=== PATIENT | female | born 1930 | race Caucasian/White ===

== ENCOUNTER 2017-08-20 03:47 | Observation (INO) ==
[2017-08-20] MEDS ORDERED: *HR* Morphine 2 MG/ML SYRINGE IVP PRN (07:54)
[2017-08-20] MEDS ORDERED: Acetaminophen 325 MG TABLET PO PRN (07:54)
[2017-08-20] MEDS ORDERED: Naloxone 0.4 MG/ML INJ IVP PRN (07:54)
[2017-08-20] MEDS ORDERED: 0.9 % Sodium Chloride 500 ML IVC ONE (08:00)
--- NOTE | 2017-08-20 08:01 | Internal Med History&Physical ---
Date of Encounter: 08/20/17 Time of Encounter: 08:48 Assessment and Plan (1) TIA (transient ischemic attack) Current visit: Yes Status: Suspected suspected, due to patient's son expressing concerns for expressing aphasia, patient denies No neurologic deficits at this time Ambulatory Head CT unremarkable EKG is Sinus tachycardia with few PVCs Start on ASA and Lipitor Check Lipid panel Obtain ECHO and Brain MRI Qualifiers: Transient cerebral ischemia type: unspecified Qualified Code(s): G45.9 - Transient cerebral ischemic attack, unspecified (2) Urinary tract infection Current visit: Yes Status: Acute UA noted, sent for culture Continue ceftriaxone,may deescalate when cultures result Qualifiers: Urinary tract infection type: acute cystitis Hematuria presence: without hematuria Qualified Code(s): N30.00 - Acute cystitis without hematuria (3) Hypertension Current visit: Yes Status: Chronic Uncontrolled Start on Norvasc, resume home dose of lisinopril Monitor closely Qualifiers: Hypertension type: essential hypertension Qualified Code(s): I10 - Essential (primary) hypertension (4) Headache Current visit: Yes Status: Acute Tylenol prn Possibly due to uncontrolled blood pressure Follow brain MRI Qualifiers: Headache type: tension-type Headache chronicity pattern: acute headache Intractability: not intractable Qualified Code(s): G44.209 - Tension-type headache, unspecified, not intractable Internal Medicine - H&P: HPI Chief complaint: Headaches Admitted From: Hospital to Hospital Transfer Plans for Post Hospital Care: Home History of present illness: Ms. Chacko is a 87 year old female with PMH of HTN, who is transferred from [place] for TIA work up Patient states she only has complains of headaches that has been ongoing for about 36 hrs, started Monday night. She reports headaches is left sided and non- radiating, throbbing in nature, she has never had similar symptoms, she has no photophobia, phonophobia, nausea or vomiting no abdominal symptoms, she has no flashes of light. She denies slurred speech, she denies weakness or sensory deficits. She also denies any chest, cardiac or urologic symptoms ER note from [place] stated patient's son expressed concerns of word-finding difficulty, and possible expressive aphasia. The patient denies this Work up done from [place] reviewed, CBC WNL, chem unremarkable, UA is positive for nitrites No illicit drug use. Patient has never smoked, no prior neurologic problems. She has a PMH of HTN Blood pressure on arrival and till now uncontrolled She has no neurologic deficits at time of review Past Med Surg Social Fam HX - Past Medical History Medical history: hypertension, other Psychiatric history: no psych history - Social History Smoking Status: Never smoker Smokeless Tobacco Status: No Alcohol use: none Drug use: none Internal Medicine - H&P: Meds Lisinopril [Zestril] 10 mg PO DAILY 08/19/17 [History] Meclizine [Antivert] 50 mg PO DAILY 08/19/17 [History] 3 Allergy/AdvReac Type Severity Reaction Status Date / Time No Known Allergies Allergy Verified 08/19/17 23:35 All Systems PM: A 10-system review of systems was performed and is negative for pertinent findings except as documented above in the HPI. - Constitutional Constitutional: no chills, no fever(s), no night sweats - EENT Eyes: no change in vision, no discharge, no pain, no photophobia Ears: no ear discharge, no ear pain, no tinnitus Nose, mouth and throat: no dysphagia, no nasal discharge, no neck pain, no sore throat - Cardiovascular Cardiovascular ROS IM: no chest pain, no diaphoresis, no dyspnea, no lightheadedness, no palpitations, no syncope - Respiratory Respiratory: no cough, no dyspnea, no wheezing, no excessive phlegm production - Gastrointestinal Gastrointestinal: no abdominal pain, no diarrhea, no hematemesis, no hematochezia, no melena, no nausea, no vomiting - Genitourinary Genitourinary: no change in urinary stream, no dysuria, no flank pain, no hematuria - Musculoskeletal Musculoskeletal ROS IM: no numbness, no tingling - Integumentary Integumentary IM: no rash, no unusual bruising - Neurological Neurological ROS: headache(s) - Hematologic/Lymphatic Hematologic/Lymphatic: no easy bruising - Constitutional Vitals: Temp Pulse Resp BP Pulse Ox 98.8 F 104 20 161/97 97 08/20/17 07:13 08/20/17 07:13 08/20/17 07:13 08/20/17 07:13 08/20/17 07:13 General appearance: Present: A&O X 3, pleasant, no acute distress - Head Head exam: Present: atraumatic, normocephalic - Eye Eye exam: Present: PERRL, conjuntiva pink, sclera anicteric Pupils: Present: PERRL - Neck Neck exam general surgery: Present: supple, trachea midline. Absent: lymphadenopathy - Respiratory Respiratory exam: Present: CTAB. Absent: accessory muscle use, rales, rhonchi, wheezes - Cardiovascular Cardiovascular exam: Present: RRR, +S1, +S2. Absent: diastolic murmur, gallop, rubs, systolic murmur - GI/Abdominal GI/Abdominal exam: Present: normal bowel sounds, soft, no peritoneal signs. Absent: distended, tenderness - Extremities Exam Extremities exam: Present: warm, radial pulses palpable and symmetrical. Absent : calf tenderness, cyanotic, pedal edema - Neurological Exam Neurological exam: Present: alert, CN II-XII intact, oriented X3, no focal deficits. Absent: pronater drift, facial droop, speech deficit - Skin Skin exam: Present: dry, intact
[2017-08-20] MEDS: Aspirin 81 MG TAB.CHEW PO SCH (09:15)
[2017-08-20] MEDS: amLODIPine 5 MG TABLET PO SCH (09:15)
[2017-08-20] MEDS: *HR* Heparin 5,000 UNIT/ML VIAL SQ SCH ×3 (09:15→20:16)
[2017-08-20] MEDS: cefTRIAXone 1,000 MG in Water for inj. (sterile) 10 ML IVPB SCH (09:16)
[2017-08-20] MEDS: *HR* HYDROcodone/Acet 5/325 mg TABLET PO PRN (20:15)
[2017-08-21 03:54] LABS: Basophils % 0.5 %; Eosinophils # 0.1 K/mcL (0.0-0.6); Eosinophils % 2.3 %; Hematocrit 39.9 % (35.3-44.9); Hemoglobin 12.7 g/dL (11.5-15.4); Immature Granulocytes % 0.2 % (0-4); Lymphocytes # 2.1 K/mcL (0.6-4.6); Lymphocytes % 38.4 %; Mean Corpuscular HGB Conc 31.8 g/dL (31.6-35.5); Mean Corpuscular Hemoglobin 28.7 pg (28.0-33.3); Mean Corpuscular Volume 90.3 fL (83.0-100.0); Mean Platelet Volume 12.2 fL (9.4-12.4); Monocytes # 0.4 K/mcL (0.0-1.3); Monocytes % 7.9 %; Neutrophils # 2.8 K/mcL (1.6-8.9); Platelet Count 190 K/mcL (140-400); Red Blood Count 4.42 M/mcL (3.82-4.97); Red Cell Distribution Width 13.6 % (11.5-14.5); Segmented Neutrophils % 50.7 %
[2017-08-21 05:12] LABS: BUN/Creatinine Ratio 22 (6-26); Blood Urea Nitrogen 13 mg/dL (8-23); Calcium 8.7 mg/dL (8.6-10.3); Carbon Dioxide 24 mEq/L (23-29); Chloride 108 mEq/L (98-107); Chol/HDL Ratio 4.5 (0-4.9); Cholesterol 199 mg/dL (< 200); Glucose 93 mg/dL (70-105); HDL Cholesterol 44 mg/dL (40-59); LDL Cholesterol,Calculated 119 mg/dL (0-99); Osmolality,Calculated 288 (280-300); Potassium 3.4 mEq/L (3.5-5.1); Sodium 139 mEq/L (136-145); Triglycerides 179 mg/dL (< 150); eGFR For African Americans > 60 (> 60); eGFR For Non-African Americans > 60 (> 60)
[2017-08-21] MEDS: *HR* Heparin 5,000 UNIT/ML VIAL SQ SCH ×3 (06:11→20:56)
--- NOTE | 2017-08-21 07:40 | Internal Med Progress Note ---
Date of Encounter: 08/21/17 Time of Encounter: 09:10 - Subjective Interval history: Ms. Chacko is a 87 year old female with PMH of HTN, who is transferred from [place] for TIA work up She states she only has complains of headaches that has been ongoing for about 36 hrs, started Monday night. She reports headaches is left sided and non-radiating, throbbing in nature, she has never had similar symptoms, she has no photophobia, phonophobia, nausea or vomiting no abdominal symptoms, she has no flashes of light. She denies slurred speech, she denies weakness or sensory deficits. She also denies any chest, cardiac or urologic symptoms The ER note from [place] stated patient's son expressed concerns of word-finding difficulty, and possible expressive aphasia. The patient denies this work up done from [place] reviewed, CBC WNL, chem unremarkable, UA is positive for nitrites. She has no neurologic deficits Metabolic encephalopathy (UTI) vs. possible TIA: Urinary tract infection UA noted, sent for culture Continue ceftriaxone,may deescalate when cultures result TIA (transient ischemic attack) No longer suspected. All presenting symptoms resolved. Neuroimaging negative. Echo negative. No neurologic deficits at this time Ambulatory patient walked in halls all day with no ataxia, dizziness or abnormal gait EKG is Sinus tachycardia with few PVCs Continue on ASA and Lipitor Check Lipid panel Hypertension Porly controlled over night. Start on Norvasc, resume home dose of lisinopril Monitor closely Dispostion: Likely can go home in am. Family concerned about discharge this afternoon because no one could be with her. - Constitutional Vitals: Temp Pulse Resp BP Pulse Ox 98.4 F 96 20 149/91 99 08/21/17 04:00 08/21/17 04:00 08/21/17 04:00 08/21/17 04:00 08/21/17 04:00 General appearance: Present: A&O X 3, pleasant, no acute distress, answers questions appropriately - Head Head exam: Present: atraumatic, normocephalic - Eye Eye exam: Present: EOMI, PERRL, conjuntiva pink, sclera anicteric Pupils: Present: PERRL - Neck Neck exam general surgery: Present: supple, trachea midline. Absent: lymphadenopathy - Respiratory Respiratory exam: Present: CTAB. Absent: accessory muscle use, rales, rhonchi, stridor, wheezes, tachypnea - Cardiovascular Cardiovascular exam: Present: RRR, +S1, +S2. Absent: diastolic murmur, gallop, rubs, systolic murmur, tachycardia - GI/Abdominal GI/Abdominal exam: Present: normal bowel sounds, soft, no peritoneal signs. Absent: distended, tenderness - External exam: Absent: ecchymosis - Extremities Exam Extremities exam: Present: warm, radial pulses palpable and symmetrical. Absent : calf tenderness, cyanotic, pedal edema - Neurological Exam Neurological exam: Present: CN II-XII intact, oriented X3, no focal deficits. Absent: pronater drift, facial droop, speech deficit - Skin Skin exam: Present: dry, intact Internal Medicine: Result - Labs CBC & Chem 7: 08/21/17 03:14 08/21/17 03:14 Labs: Short CBC 08/21/17 Range/Units 03:14 WBC 5.6 (4.3-11.1) K/mcL Hgb 12.7 (11.5-15.4) g/dL Hct 39.9 (35.3-44.9) % Plt Count 190 (140-400) K/mcL Neutrophils # 2.8 (1.6-8.9) K/mcL BMP 08/21/17 03:14 Sodium 139 Potassium 3.4 L Chloride 108 H Carbon Dioxide 24 BUN 13 Creatinine 0.60 Glucose 93 Calcium 8.7 - Impressions Impressions Brain MRI 08/20/17 09:01 IMPRESSION: 1. No acute infarct, intracranial hemorrhage, or significant mass effect. 2. 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 D/ / 08/20/2017 12:13:30 Tomas Courtney MD / johnathan Interpreting Provider: Tomas Courtney MD - VTE Documentation of Mechanical Device: Intermittent pneumatic compression device Consult Discharge Plan - Plan Instructions: Chronic Hypertension (DC) Referrals: CARMINE MURPHY [Other] (DR. MURPHY'S OFFICE SAID FOR THE SON TO CALL AND MAKE A FOLLOW UP APPOINTMENT.) NONE,PCP [Primary Care Provider] -
[2017-08-21] MEDS: amLODIPine 5 MG TABLET PO SCH (09:05)
[2017-08-21] MEDS: Aspirin 81 MG TAB.CHEW PO SCH (09:05)
[2017-08-21] MEDS: cefTRIAXone 1,000 MG in Water for inj. (sterile) 10 ML IVPB SCH (09:06)
[2017-08-21] MEDS: *HR* HYDROcodone/Acet 5/325 mg TABLET PO PRN (20:56)
[2017-08-22] MEDS: *HR* Heparin 5,000 UNIT/ML VIAL SQ SCH (05:03)
[2017-08-22 07:18] LABS: Basophils % 0.4 %; Eosinophils # 0.2 K/mcL (0.0-0.6); Eosinophils % 3.7 %; Hematocrit 38.2 % (35.3-44.9); Hemoglobin 12.4 g/dL (11.5-15.4); Immature Granulocytes % 0.2 % (0-4); Lymphocytes # 1.3 K/mcL (0.6-4.6); Lymphocytes % 24.1 %; Mean Corpuscular HGB Conc 32.5 g/dL (31.6-35.5); Mean Corpuscular Hemoglobin 29.5 pg (28.0-33.3); Mean Platelet Volume 11.9 fL (9.4-12.4); Monocytes # 0.4 K/mcL (0.0-1.3); Monocytes % 7.1 %; Neutrophils # 3.4 K/mcL (1.6-8.9); Platelet Count 166 K/mcL (140-400); Red Cell Distribution Width 13.8 % (11.5-14.5); Segmented Neutrophils % 64.5 %
[2017-08-22] MEDS: Aspirin 81 MG TAB.CHEW PO SCH (08:19)
[2017-08-22] MEDS: cefTRIAXone 1,000 MG in Water for inj. (sterile) 10 ML IVPB SCH (08:19)
[2017-08-22] MEDS: amLODIPine 5 MG TABLET PO SCH (08:19)
[2017-08-22 11:47] VITALS: BP 153/79
--- NOTE | 2017-08-22 13:21 | Discharge Summary ---
Date of Encounter: 08/22/17 Time of Encounter: 13:19 - Discharge Diagnosis (1) Hypertension Priority: Secondary Status: Chronic Qualifiers: Hypertension type: essential hypertension Qualified Code(s): I10 - Essential (primary) hypertension (2) TIA (transient ischemic attack) Priority: Primary Status: Suspected Qualifiers: Transient cerebral ischemia type: unspecified Qualified Code(s): G45.9 - Transient cerebral ischemic attack, unspecified (3) UTI (urinary tract infection) Priority: Primary Status: Acute Qualifiers: Urinary tract infection type: acute cystitis Hematuria presence: without hematuria Qualified Code(s): N30.00 - Acute cystitis without hematuria - Discharge Medications Prescriptions: amLODIPine [Norvasc] 10 mg PO DAILY #30 tablet Aspirin 81 mg PO DAILY #30 tab.chew Atorvastatin [Lipitor] 40 mg PO HS #30 tablet levoFLOXacin [Levaquin] 500 mg PO DAILY #5 tablet Home Medications: Lisinopril [Zestril] 10 mg PO DAILY 08/19/17 [History] Meclizine [Antivert] 50 mg PO DAILY 08/19/17 [History] Aspirin 81 mg PO DAILY #30 tab.chew 08/22/17 [Rx] Atorvastatin [Lipitor] 40 mg PO HS #30 tablet 08/22/17 [Rx] amLODIPine [Norvasc] 10 mg PO DAILY #30 tablet 08/22/17 [Rx] levoFLOXacin [Levaquin] 500 mg PO DAILY #5 tablet 08/22/17 [Rx] Allergies/Adverse Reactions: 3 Allergy/AdvReac Type Severity Reaction Status Date / Time No Known Allergies Allergy Verified 08/20/17 16:30 Procedures/tests Complete & Pending: Procedures Performed prior 72 hours Category Date Time Status MR head/brain wo con [MR] Stat MRI 08/20/17 09:01 Completed ECG 12 lead ECG [ECG] Routine Y 08/20/17 08:40 Completed EV echocardiogram Routine Y 08/21/17 07:58 Completed Date of admission: 08/20/17 07:54 Primary care physician: PCP NONE - Patient Status Disposition: Home, Self-Care Condition: Fair Overall status at discharge: patient is progressing back to baseline - Discharge Instructions Instructions: Aspirin (By mouth), Amlodipine (By mouth), Atorvastatin (By mouth ), Levofloxacin (By mouth), Urinary Tract Infection in Women (DC), Chronic Hypertension (DC) Follow Up With: CARMINE MURPHY [Other] (DR. MURPHY'S OFFICE SAID FOR THE SON TO CALL AND MAKE A FOLLOW UP APPOINTMENT.) NONE,PCP [Primary Care Provider] - - Diet and Activity Activity: increase activity as tolerated Diet: low salt diet Hospital course: Ms. Chacko is a 87 year old female with PMH of HTN, who was transferred from [place] for TIA work up. Her initial complaint was headaches which resolved while here. Her son expressed concerns of word-finding difficulty, and possible expressive aphasia. She ended up being admitted for those reasons. She was noted to have elevated systolic blood pressure. We started her on aspirin and statin and added amlodipine. We ruled out a stroke with a negative CT head as well as MRI brain. She was stable for discharge on 08/22/2017. I did advise the patient to keep a log of her blood pressure at home and take it to her primary care physician for further adjustments with blood pressure medications. On day of discharge she had no neurological deficits whatsoever. - Time Spent with Patient Total time spent providing and/or coordinating discharge services: Greater than 30 minutes - Constitutional Vitals: Temp Pulse Resp BP Pulse Ox 98.8 F 94 18 153/79 94 08/22/17 12:00 08/22/17 12:00 08/22/17 12:00 08/22/17 12:08/22/17 12:00 General appearance: Present: A&O X 3, pleasant, no acute distress, answers questions appropriately Exam: GEN: NAD CVS: RRR. S1, S2, No m/r/g RESP: CTAB ABD: Soft, NT, ND, +BS EXT: No edema. 2+ DP. No rashes NEURO: Nonfocal - VTE Documentation of Mechanical Device: Intermittent pneumatic compression device
--- NOTE | 2017-08-22 17:23 | Electrocardiograph Report ---
[address] [address] Test Date: 2017-08-20 Pat Name: Caty Chacko Department: 110 Room: 09 Gender: F Photograph Tinter: SHOSHANA : [id number] Requested By: Arina Breaux Order Number: [id number] Reading MD: Eduarod Obregon Measurements Intervals Shelly Rate: 105 P: 50 [place]: 136 QRS: 49 QRSD: 78 T: 46 QT: 318 QTc: 379 Interpretive Statements SINUS TACHYCARDIA WITH OCCASIONAL VENTRICULAR PREMATURE COMPLEXES ABNORMAL RHYTHM ECG Electronically Signed On 08-22-2017 17:21:40 EST by Eduardo Obregon
== END 2017-08-22 14:30 | disposition home or self-care (01) ==
LOC: 2NNU
PROVIDERS: ADMIT Internal Medicine; ATTEND Internal Medicine

== ENCOUNTER 2020-01-17 20:17 | Observation (INO) ==
[2020-01-17] MEDS ORDERED: Piperacillin/Tazobactam 3.375 GM in 0.9 % Sodium Chloride Mini Bag 100 ML IVPB ONE (21:24)
[2020-01-17] MEDS ORDERED: Naloxone 0.4 MG/ML INJ IVP PRN (21:52)
[2020-01-17] MEDS ORDERED: 0.9 % Sodium Chloride 1,000 ML IVC SCH (23:15)
[2020-01-18] MEDS: *HR* Heparin 5,000 UNIT/ML VIAL SQ SCH ×3 (05:00→17:10)
[2020-01-18 06:17] LABS: Basophils % 0.1 %; Eosinophils % 0.4 %; Hematocrit 38.8 % (35.3-44.9); Hemoglobin 12.7 g/dL (11.5-15.4); Immature Granulocytes % 0.2 % (0-4); Lymphocytes # 1.8 K/mcL (0.6-4.6); Lymphocytes % 19.6 %; Mean Corpuscular HGB Conc 32.7 g/dL (31.6-35.5); Mean Corpuscular Hemoglobin 29.9 pg (28.0-33.3); Mean Corpuscular Volume 91.3 fL (83.0-100.0); Mean Platelet Volume 12.2 fL (9.4-12.4); Monocytes # 0.8 K/mcL (0.0-1.3); Monocytes % 8.4 %; Neutrophils # 6.4 K/mcL (1.6-8.9); Platelet Count 166 K/mcL (140-400); Red Blood Count 4.25 M/mcL (3.82-4.97); Red Cell Distribution Width 14.2 % (11.5-14.5); Segmented Neutrophils % 71.3 %
[2020-01-18 06:40] LABS: BUN/Creatinine Ratio 23 (6-26); Blood Urea Nitrogen 21 mg/dL (8-23); Calcium 8.9 mg/dL (8.6-10.3); Carbon Dioxide 23 mEq/L (23-29); Chloride 102 mEq/L (98-107); Glucose 111 mg/dL (70-105); Osmolality,Calculated 282 (280-300); Potassium 3.8 mEq/L (3.5-5.1); Sodium 134 mEq/L (136-145); eGFR For African Americans > 60 (> 60); eGFR For Non-African Americans 57 (> 60)
[2020-01-18] MEDS ORDERED: *HR* Dextrose 50 % in Water (Vial) 50 ML VIAL IVP PRN ×2 (07:50→16:55)
[2020-01-18] MEDS ORDERED: D5% in Water 1,000 ML IVC PRN (07:50)
[2020-01-18] MEDS ORDERED: Dextrose Gel 15 GM/37.5 ML TUBE PO PRN ×4 (07:50→16:55)
[2020-01-18] MEDS ORDERED: Piperacillin/Tazobactam 3.375 GM in 0.9 % Sodium Chloride Mini Bag 100 ML IVPB SCH (09:00)
[2020-01-18] MEDS ORDERED: Insulin LISPRO 300 UNITS/3 ML VIAL SQ SCH (12:00)
[2020-01-18] MEDS ORDERED: Acetaminophen 325 MG TABLET PO PRN (12:11)
[2020-01-18] MEDS ORDERED: Lidocaine HCL 4 ML Topical Solution (Laryng-O-Jet Kit Sterile Pak) TP ONE (12:57)
[2020-01-18] MEDS ORDERED: Lidocaine -MPF 2% 2 ML VIAL ONE (12:57)
[2020-01-18] MEDS ORDERED: *HR* Rocuronium Bromide 50 MG/5 ML VIAL ONE (12:57)
[2020-01-18] MEDS ORDERED: Ondansetron 4 MG/2 ML VIAL ONE (12:57)
[2020-01-18] MEDS ORDERED: *HR* FentaNYL (PF) 100 MCG/2 ML VIAL ONE (12:57)
[2020-01-18] MEDS ORDERED: *HR* Propofol 200 MG/20 ML VIAL IVP ONE (12:57)
[2020-01-18] MEDS ORDERED: Dexamethasone 4 MG/ML VIAL ONE (12:57)
[2020-01-18] MEDS ORDERED: Acetaminophen IV 1,000 MG/100 ML BAG ONE (13:27)
[2020-01-18] MEDS ORDERED: Famotidine 20 MG/2 ML VIAL ONE (13:27)
[2020-01-18] MEDS ORDERED: Ondansetron 4 MG/2 ML VIAL IVP ONE (13:31)
[2020-01-18] MEDS ORDERED: Morphine Sulfate 2 MG/ML SYRINGE IVP PRN (13:31)
[2020-01-18] MEDS ORDERED: *HR* PHENYLEPHRINE 1,000 MCG/10 ML SYRINGE IVP ONE ×2 (14:11→14:27)
[2020-01-18] MEDS ORDERED: Naloxone 0.4 MG/ML INJ IVP PRN (16:55)
[2020-01-18] MEDS ORDERED: *HR* OxyCODONE/APAP 5/325 TABLET PO PRN (16:55)
[2020-01-18] MEDS: Piperacillin/Tazobactam 3.375 GM in 0.9 % Sodium Chloride Mini Bag 100 ML IVPB SCH (17:10)
[2020-01-18] MEDS: Insulin LISPRO 300 UNITS/3 ML VIAL SQ SCH (17:48)
[2020-01-19] MEDS: Piperacillin/Tazobactam 3.375 GM in 0.9 % Sodium Chloride Mini Bag 100 ML IVPB SCH ×2 (00:05→09:25)
[2020-01-19] MEDS: Insulin LISPRO 300 UNITS/3 ML VIAL SQ SCH ×3 (00:15→12:08)
[2020-01-19] MEDS: *HR* Heparin 5,000 UNIT/ML VIAL SQ SCH (06:06)
[2020-01-19 08:07] LABS: Basophils % 0.1 %; Hematocrit 35.6 % (35.3-44.9); Hemoglobin 11.5 g/dL (11.5-15.4); Immature Granulocytes % 0.5 % (0-4); Lymphocytes # 0.8 K/mcL (0.6-4.6); Lymphocytes % 7.3 %; Mean Corpuscular HGB Conc 32.3 g/dL (31.6-35.5); Mean Corpuscular Hemoglobin 29.9 pg (28.0-33.3); Mean Corpuscular Volume 92.5 fL (83.0-100.0); Monocytes # 0.6 K/mcL (0.0-1.3); Monocytes % 5.4 %; Neutrophils # 9.8 K/mcL (1.6-8.9); Platelet Count 157 K/mcL (140-400); Red Blood Count 3.85 M/mcL (3.82-4.97); Red Cell Distribution Width 14.1 % (11.5-14.5); Segmented Neutrophils % 86.7 %; White Blood Count 11.3 K/mcL (4.3-11.1)
[2020-01-19 08:25] LABS: BUN/Creatinine Ratio 20 (6-26); Blood Urea Nitrogen 16 mg/dL (8-23); Calcium 8.7 mg/dL (8.6-10.3); Carbon Dioxide 26 mEq/L (23-29); Chloride 105 mEq/L (98-107); Glucose 154 mg/dL (70-105); Magnesium 1.9 mg/dL (1.6-2.6); Osmolality,Calculated 288 (280-300); Phosphorous 3.2 mg/dL (2.7-4.5); Sodium 137 mEq/L (136-145); eGFR For African Americans > 60 (> 60); eGFR For Non-African Americans > 60 (> 60)
[2020-01-19] MEDS ORDERED: lisinopriL 10 MG TABLET PO SCH (09:00)
[2020-01-19 12:17] VITALS: BP 130/78
== END 2020-01-19 14:40 | disposition home or self-care (01) ==
LOC: EMEROOARM 20:17 → 3ANU 20:17 → SUATTDRO 22:27 → 3ANU 01-18 00:10
PROVIDERS: ADMIT Internal Medicine; ATTEND Internal Medicine